=== PATIENT | female | born 1980 | race Caucasian/White ===

== ENCOUNTER → 2025-04-05 | Day surgery (SDC) | payer BC ==
[~2025-04-05] MED LIST: AMBIEN10 MG PO; LIDOCAINE HCL 2% LOCAL INJ 5 ML SDV VIAL INJ ONE; MINOXIDIL2.5 MG PO; PROPOFOL IV EMULSION 10 MG/ML 20 ML VIAL ONE
[2025-04-05 15:19] VITALS: TEMP 98.1
[2025-04-05 15:50] VITALS: BP 111/74; PULSE 78; RESP 16; O2SAT 100
== END | disposition home or self-care (01) ==
LOC: OR 12:51
PROVIDERS: ATTEND Internal Medicine Gastroenterology
DX: K29.70 Gastritis, unspecified, without bleeding (principal); K31.7 Polyp of stomach and duodenum; K21.00 Gastro-esophageal reflux disease with esophagitis, without bleeding; K22.10 Ulcer of esophagus without bleeding; K44.9 Diaphragmatic hernia without obstruction or gangrene; D64.9 Anemia, unspecified; L65.9 Nonscarring hair loss, unspecified; J30.2 Other seasonal allergic rhinitis; Z71.89 Other specified counseling; F32.A Depression, unspecified; Z79.899 Other long term (current) drug therapy; Z68.26 Body mass index [BMI] 26.0-26.9, adult; Z71.3 Dietary counseling and surveillance; Z86.16 Personal history of COVID-19
CPT/HCPCS: 43239; 43251; 81025; J2003; J2470; J2704